=== PATIENT | male | born 1975 | race Caucasian/White ===

== ENCOUNTER → 2016-12-25 | Outpatient (CLI) | payer OTHER ==
[2016-12-25 09:48] LABS: CHLORIDE,CL 105 mmol/L (98-110); SODIUM,NA 140 mmol/L (136-146)
== END ==
LOC: MW.CHRC 09:06
PROVIDERS: ATTEND Family Medicine
DX: Z00.00 Encounter for general adult medical examination without abnormal findings (principal); I10 Essential (primary) hypertension
CPT/HCPCS: 36415; 80053; 80061; 86592; 87389; 87491; 87591; G0475

== ENCOUNTER 2020-08-13 07:20 | Day surgery (SDC) | payer OTHER ==
[~2020-08-13 07:20] MED LIST: Lactated Ringers 1,000 ML IV SCH; Lidocaine 2% 5 ML SDV ONE; Propofol 200 MG/20 ML SDV ONE; Sodium Chloride 0.9% 10 ML SDV IV PRN; Sodium Chloride 0.9% 10 ML Syringe FLUSH PRN; Sodium Chloride 0.9% 2.5 ML Syringe FLUSH PRN; fentaNYL 100 MCG/2 ML SDV ONE
--- NOTE | 2020-08-13 07:58 | PCM.PREANE ---
Preanesthetic Assessment - Anesthesia/Transfusion/Family Hx Anesthesia History: Prior Anesthesia Without Reaction Other Type of Anesthesia Reaction Comment: Denies any known problem in past, no known family history problems Family History of Anesthesia Reaction: No Transfusion History: No Prior Transfusion(s) Intubation History: Unknown - Review of Systems General: No Symptoms Pulmonary: No Symptoms Cardiovascular: No Symptoms Gastrointestinal: Difficulty Swallowing, Melena Neurological: No Symptoms Other: Reports: None - Physical Assessment Height: 5 ft 10 in Weight: 133.81 kg ASA Class: 2 Mental Status: Alert & Oriented x3 Airway Class: Mallampati = 2 Dentition: Reports: Normal Dentition Thyro-Mental Finger Breadths: 3 Mouth Opening Finger Breadths: 3 ROM/Head Extension: Full Lungs: Clear to Auscultation, Normal Respiratory Effort Cardiovascular: Regular Rate, Regular Rhythm - Allergies Allergies/Adverse Reactions: Allergies Allergy/AdvReac Type Severity Reaction Status Date / Time iodine Allergy Shortness Verified 08/07/20 08:36 of Breath - Blood Blood Available: No - Anesthesia Plan Pre-Op Medication Ordered: None - Acknowledgements Anesthesia Type Planned: MAC Pt an Appropriate Candidate for the Planned Anesthesia: Yes Alternatives and Risks of Anesthesia Discussed w Pt/Guardian: Yes Pt/Guardian Understands and Agrees with Anesthesia Plan: Yes PreAnesthesia Questionnaire HEENT History: Reports: None Cardiovascular History: Reports: Hypertension Respiratory History: Reports: Asthma, Other (See Below) Other Respiratory History: Exercised induced asthma- rarely uses inhaler, went to Primary care last week for symptoms of chest pain and SOB- COVID test was negative- diagnosed with anxiety attack or GERD- took a couple doses of Prednisone and is feeling better Gastrointestinal History: Reports: GERD, Other (See Below) Other Gastrointestinal History: currently some dysphagia Musculoskeletal History: Reports: Back Pain, Chronic Neurological History: Reports: Migraines Other Neuro History: has migraines only about twice a year Psychiatric History: Reports: Anxiety, Other (See Below) (dysphagia, melena, small hiatal hernia) Endocrine/Metabolic History: Reports: Obesity/BMI 30+ (BMI 42.3) Hematologic History: Reports: Iron Deficiency Dermatologic History: Reports: Eczema - Past Surgical History Head Surgeries/Procedures: Reports: None HEENT Surgical History: Reports: LASIK Musculoskeletal Surgical History: Reports: Carpal Tunnel - SUBSTANCE USE Tobacco Use Status *Q: Never Tobacco User Recreational Drug Use History: No - HOME MEDS Home Medications: Home Meds Triamterene/Hydrochlorothiazid [Triamterene-HCTZ 37.5-25 MG] 1 tab PO DAILY 09/18/14 [History] Albuterol Sulfate [Albuterol Sulfate Hfa] 1 - 2 puff INH Q4H PRN 07/05/20 [History] Ferrous Sulfate 324 mg PO DAILY 07/05/20 [History] Montelukast Sodium 10 mg PO DAILY 07/05/20 [History] Omeprazole 40 mg PO DAILY 07/05/20 [History] Triamcinolone Acetonide [Triamcinolone Acetonide 0.025%] 1 dose TOP TID PRN 07/05/20 [History] Venlafaxine HCl [Venlafaxine HCl ER] 3 tab PO DAILY 07/05/20 [History] amLODIPine Besylate/Benazepril [Amlodipine-Benazepril 10-20 mg] 1 tab PO QAM 07/05/20 [History] traZODone HCl [Trazodone HCl] 50 mg PO BEDTIME 07/05/20 [History] - CURRENT (IN HOUSE) MEDS Current Meds: Current Medications Lactated Ringer's (Ringers, Lactated) 1,000 mls @ 125 mls/hr IV ASDIRECTED COURTNEY Sodium Chloride (Saline Flush) 10 ml FLUSH ASDIRECTED PRN PRN Reason: Keep Vein Open Sodium Chloride (Saline Flush) 2.5 ml FLUSH ASDIRECTED PRN PRN Reason: Keep Vein Open Sodium Chloride (Saline Flush) 10 ml FLUSH ASDIRECTED PRN PRN Reason: Keep Vein Open Sodium Chloride (Saline Flush) 2.5 ml FLUSH ASDIRECTED PRN PRN Reason: Keep Vein Open Sodium Chloride (Normal Saline) 10 ml IV ASDIRECTED PRN PRN Reason: IV Use Discontinued Medications Fentanyl (Sublimaze) Confirm Administered Dose 100 mcg .ROUTE .STK-MED ONE Stop: 08/13/20 07:21 Lidocaine (Xylocaine-Mpf 2%) Confirm Administered Dose 5 ml .ROUTE .STK-MED ONE Stop: 08/13/20 07:21 Propofol (Diprivan 20 Ml) Confirm Administered Dose 400 mg .ROUTE .STK-MED ONE Stop: 08/13/20 07:21
--- NOTE | 2020-08-13 09:37 | PCM.OPNOTE ---
- General Post-Op/Procedure Note Date of Surgery/Procedure: 08/13/20 Operative Procedure(s): Diagnostic EGD and colonoscopy Findings: Hiatal hernia, no evidence of celiac disease, sigmoid colon polyp, rectal irritation Pre Op Diagnosis: Hiatal hernia, dysphagia, change in bowel habits, melena Post-Op Diagnosis: Hiatal hernia, hyperplastic gastric polyp, rectal irritation, sigmoid colon polyp Anesthesia Technique: MAC Primary Surgeon: Indigo Mc Condition: Good
--- NOTE | 2020-08-13 09:48 | PCM.POSTAN ---
POST ANESTHESIA ASSESSMENT - MENTAL STATUS Mental Status: Alert, Oriented - VITAL SIGNS Vital Signs: Last Vital Signs Temp 36.5 C 08/13/20 08:08 Pulse 92 08/13/20 09:39 Resp 11 L 08/13/20 09:39 BP 127/90 08/13/20 09:39 Pulse Ox 93 L 08/13/20 09:39 - RESPIRATORY Respiratory Status: Respiratory Rate WNL, Airway Patent, O2 Saturation Stable - CARDIOVASCULAR CV Status: Pulse Rate WNL, Blood Pressure Stable - GASTROINTESTINAL GI Status: No Symptoms - PAIN Pain Score: 0 - POST OP HYDRATION Hydration Status: Adequate & Stable - OBSERVATIONS Free Text/Narrative:: No anesthesia problems
--- NOTE | 2020-08-13 10:02 | PCM48HPAN ---
Post Anesthesia Note - EVALUATION WITHIN 48HRS OF ANESTHETIC Vital Signs in Normal Range: Yes Patient Participated in Evaluation: Yes Respiratory Function Stable: Yes Airway Patent: Yes Cardiovascular Function Stable: Yes Hydration Status Stable: Yes Pain Control Satisfactory: Yes Nausea and Vomiting Control Satisfactory: Yes Mental Status Recovered: Yes Vital Signs: Last Vital Signs Temp 36.5 C 08/13/20 08:08 Pulse 92 08/13/20 09:39 Resp 11 L 08/13/20 09:39 BP 127/90 08/13/20 09:39 Pulse Ox 93 L 08/13/20 09:39 - COMMENTS/OBSERVATIONS Free Text/Narrative:: No anesthesia problems
[2020-08-13 10:24] VITALS: BP 150/89; PULSE 91
--- NOTE | 2020-08-13 11:34 | OR ---
SURGEON: INDIGO MC MD DATE OF PROCEDURE: 08/13/2020 PREOPERATIVE DIAGNOSES: 1. Dysphagia. 2. Hiatal hernia. 3. Change in bowel habits. 4. Melena. POSTOPERATIVE DIAGNOSES: 1. Hyperplastic gastric polyp. 2. Hiatal hernia. 3. Sigmoid colon polyp. 4. Rectal irritation. PROCEDURE PERFORMED: Diagnostic esophagogastroduodenoscopy and colonoscopy. PRIMARY SURGEON: Indigo Mc MD ANESTHESIA: MAC. INSTRUMENT USED: Olympus endoscope and colonoscope. EXTENT OF EXAM: To the second portion of duodenum, to the cecum. PREPARATION: Good. LIMITATIONS: None. INDICATIONS FOR EXAMINATION: The patient is a 45-year-old male who presented to my office with dysphagia as well as a change in his bowel habits associated with melena. The patient and I discussed the need for diagnostic EGD and colonoscopy. I explained the procedure, expected perioperative course, and risks. He verbalized understanding and wishes to proceed. PROCEDURE IN DETAIL: The patient was brought into the endoscopy suite and placed in a left lateral decubitus position. A time-out was completed verifying the patient's name, age, date of , allergies, and procedure to be performed. A bite block was placed in the patient's mouth. Monitored anesthesia care was induced and continuous oxygen was provided via nasal cannula throughout the procedure. After adequate sedation was achieved, a well-lubricated endoscope was placed in the patient's mouth and advanced under direct visualization to the second portion of duodenum. This appeared normal and a photograph was taken. The scope was then fully withdrawn while examining the color, texture, anatomy, and integrity of the mucosa of the upper GI tract. The duodenum appeared normal. The scope was brought into the stomach and a photograph was taken of the pylorus and GE junction. The patient had a very small hiatal hernia. In the body of the stomach, the patient had some scattered hyperplastic polyps. Biopsies were taken of the gastric antrum, body, and fundus and sent for histologic review and H pylori testing. There was no evidence of gross ulceration or inflammation. The scope was brought into the distal esophagus and a photograph was taken, a very small hiatal hernia sac. The Z-line was only mildly irregular. The distal esophageal mucosa appeared normal. Biopsies were taken of the distal esophageal mucosa and sent to pathology, labeled as esophagus. The remainder of the esophagus was normal. The scope was removed and this portion of the procedure was terminated. A digital rectal exam was performed. This exam was within normal limits. A well-lubricated colonoscope was inserted in the rectum and advanced under direct visualization to the level of the cecum. The cecum was identified by both visual and anatomic landmarks. A photograph was taken of the cecal cap as well as with the scope retroflexed within the cecum. The scope was then fully withdrawn while examining the color, texture, anatomy, and integrity of the mucosa from the cecum to the anal canal. The patient was found to have a pedunculated polyp within the distal sigmoid colon. This was removed in piecemeal fashion using cold biopsy forceps. The scope was then brought into the rectum. The rectal mucosa appeared to be irritated and had small petechiae. Biopsies were taken of this using cold biopsy forceps. The scope was then retroflexed to allow visualization of the anal canal opening. The hemorrhoidal tissue appeared irritated as well, but there was no evidence of acute bleeding. The scope was then straightened out and fully withdrawn. Cecum to anus time was 10 minutes. The patient tolerated the procedure well and was transferred to the PACU in stable condition. ENDOSCOPIC DIAGNOSES: 1. Hyperplastic gastric polyp. 2. Hiatal hernia. 3. Sigmoid colon polyp. 4. Rectal irritation. RECOMMENDATIONS: Follow up in clinic in 2 weeks. PRAVEEN STEPHENS /[id number]
== END 2020-08-13 10:00 | disposition home or self-care (01) ==
LOC: MW.SDS 07:20
PROVIDERS: ATTEND Surgery
DX: D12.5 Benign neoplasm of sigmoid colon (principal); K44.9 Diaphragmatic hernia without obstruction or gangrene; K31.7 Polyp of stomach and duodenum; K62.89 Other specified diseases of anus and rectum; K64.9 Unspecified hemorrhoids; F41.9 Anxiety disorder, unspecified; I10 Essential (primary) hypertension; E66.9 Obesity, unspecified; D50.9 Iron deficiency anemia, unspecified; Z88.8 Allergy status to other drugs, medicaments and biological substances; Z79.899 Other long term (current) drug therapy; Z98.890 Other specified postprocedural states; Z68.41 Body mass index [BMI] 40.0-44.9, adult
CPT/HCPCS: 43239; 45380; 88304; 88312; J2001; J2704; J3010; J7120; 00813